=== PATIENT | male | born 1950 | race Caucasian/White ===

== ENCOUNTER 2018-03-22 21:37 | Emergency (ER) | payer MEDICARE ==
[~2018-03-22] VITALS: Ht 185.4 cm; Wt 97.1 kg
[~2018-03-22 21:37] MED LIST: ACET325 PO; ASPI325 PO; ELIQUIS5 MG PO; LISI20 PO; PROC10 PO; SIMV10 PO; Zocor20 MG PO
[2018-03-22] MEDS ORDERED: IBUP800 PO (22:56)
[2018-03-22] MEDS ORDERED: LEVFLO500 PO (22:56)
== END 2018-03-22 23:10 | disposition home or self-care (01) ==
LOC: ER 21:37
DX: N45.1 Epididymitis (principal); Z88.0 Allergy status to penicillin; Z88.5 Allergy status to narcotic agent; Z79.899 Other long term (current) drug therapy; I48.91 Unspecified atrial fibrillation
CPT/HCPCS: 76870; 99284

== ENCOUNTER 2019-05-01 14:40 | Day surgery (SDC) | payer MEDICARE ==
[~2019-05-01] VITALS: Ht 185.4 cm; Wt 97.6 kg
[~2019-05-01 14:40] MED LIST changes: +IBUP800 PO; +LEVFLO500 PO
== END 2019-05-01 18:20 | disposition home or self-care (01) ==
LOC: ORSCSDS 14:40
PROVIDERS: Internal Medicine Gastroenterology
PROC: 0D757ZZ Dilation of Esophagus, Via Natural or Artificial Opening (ICD-10-PCS; principal; 2019-05-01 14:15)
PROC: 0DJ08ZZ Inspection of Upper Intestinal Tract, Via Natural or Artificial Opening Endoscopic (ICD-10-PCS; principal; 2019-05-01 14:15)
DX: R22.1 Localized swelling, mass and lump, neck (principal); Z80.0 Family history of malignant neoplasm of digestive organs; I48.91 Unspecified atrial fibrillation; I10 Essential (primary) hypertension; Z79.899 Other long term (current) drug therapy
CPT/HCPCS: J2704; J7120